=== PATIENT | female | born 1950 | race Asian ===

== ENCOUNTER 2023-08-28 08:21 | Outpatient (CLI) | payer MEDICARE, OTHER ==
[2023-08-28 12:49] LABS: CHOL/HDL RATIO 3.6 (<4.4); CHOLESTEROL 222 mg/dL; HDL CHOLESTEROL 62 mg/dL; LDL CHOLESTEROL,CALCULATED 117 mg/dL; LDL/HDL RATIO 1.9 (<4.4); TRIGLYCERIDES 214 mg/dL (48-352); VLDL CHOLESTEROL 43 mg/dL
== END 2023-08-28 08:22 | disposition home or self-care (01) ==
LOC: LAB.N 08:21
PROVIDERS: ATTEND Internal Medicine
DX: R07.89 Other chest pain (principal)
CPT/HCPCS: 36415; 80061; 81599; 83695; 83721